=== PATIENT | female | born 2000 | race Caucasian/White ===

== ENCOUNTER 2020-02-02 17:53 | Emergency (ER) | payer OTHER ==
[2020-02-02 18:04] VITALS: BP 125/77
--- NOTE | 2020-02-02 18:10 | ED Physician Documentation ---
PD HPI LOWER EXT INJURY - Stated complaint Stated Complaint: SWOLLEN RED SPOT ON L FOOT - Chief complaint Chief Complaint: Ext Problem - History obtained from History obtained from: Patient - History of Present Illness PD HPI LOW EXT INJURY LOCATION: Other (She noticed 2 red areas on the left foot a couple of days ago, not sure what happened. She presumed spider bite. No fevers.) Review of Systems Constitutional: reports: Reviewed and negative Throat: reports: Reviewed and negative Cardiac: reports: Reviewed and negative Respiratory: reports: Reviewed and negative PD PAST MEDICAL HISTORY - Past Medical History Past Medical History: No Cardiovascular: None Respiratory: None Neuro: None Endocrine/Autoimmune: None GI: None CLINICAL REVIEWER: None : None HEENT: None Psych: None Musculoskeletal: None Derm: None - Past Surgical History Past Surgical History: No - Present Medications Home Medications: Ambulatory Orders Medication Instructions Recorded Confirmed Cephalexin [Keflex] 500 mg PO Q6H #28 capsule 02/02/20 - Allergies Allergies/Adverse Reactions: Allergies Allergy/AdvReac Type Severity Reaction Status Date / Time No Known Drug Allergies Allergy Verified 02/02/20 18:00 - Social History Does the pt smoke?: No Smoking Status: Never smoker Does the pt drink ETOH?: No Does the pt have substance abuse?: No - Immunizations Immunizations are current?: Yes - POLST Patient has POLST: No PD ED PE NORMAL - Vitals Vital signs reviewed: Yes - General General: Alert and oriented X 3, No acute distress - Extremities Extremities: Other (There is very mild redness of the dorsal right left second toe and there is more significant redness but still very small on the lateral left foot.) - Neuro Neuro: Alert and oriented X 3, Normal speech Results - Vitals Vitals: Vital Signs - 24 hr 02/02/20 18:00 Temperature 36.6 C Heart Rate 65 Respiratory 16 Rate Blood Pressure 125/77 O2 Saturation 99 Oxygen O2 Source Room air Departure - Departure Disposition: 01 Home, Self Care Clinical Impression: Cellulitis of left foot Condition: Good Record reviewed to determine appropriate education?: Yes Instructions: Cellulitis Dc Prescriptions: Cephalexin [Keflex] 500 mg PO Q6H #28 capsule Comments: Call your doctor to arrange a follow-up appointment, make the next available appointment. In the interim, return anytime if worse or if new symptoms develop.
== END 2020-02-02 18:19 | disposition home or self-care (01) ==
LOC: ED 17:53
DX: L03.116 Cellulitis of left lower limb (principal)
CPT/HCPCS: 99282; 99283

== ENCOUNTER 2020-05-26 22:58 | Emergency (ER) | payer OTHER ==
--- NOTE | 2020-05-26 23:02 | ED Physician Documentation ---
History of Present Illness - Stated complaint Stated Complaint: FEM - History obtained from History obtained from: Patient - Additonal information Additional information: Patient is a 20-year-old female who presents with pelvic pain off and on for the last 2 weeks. Also reports irregular vaginal bleeding And irregular periods. Denies any history of denies using any control. Denies any fever chills or night sweats denies any dysuria hematuria or flank pain.Reports she is otherwise healthy and up-to-date on all recommended Review of Systems Constitutional: reports: Reviewed and negative Eyes: reports: Reviewed and negative Ears: reports: Reviewed and negative Nose: reports: Reviewed and negative Throat: reports: Reviewed and negative Cardiac: reports: Reviewed and negative Respiratory: reports: Reviewed and negative GI: reports: Reviewed and negative : reports: Vaginal bleeding, Irregular menses, Other (Pelvic pain) Skin: reports: Reviewed and negative Musculoskeletal: reports: Reviewed and negative Neurologic: reports: Reviewed and negative Psychiatric: reports: Reviewed and negative Endocrine: reports: Reviewed and negative Immunocompromised: reports: Reviewed and negative PD PAST MEDICAL HISTORY - Past Medical History Cardiovascular: None Respiratory: None Neuro: None Endocrine/Autoimmune: None GI: None COUNCILPERSON: None : None HEENT: None Psych: None Musculoskeletal: None Derm: None - Past Surgical History Past Surgical History: No - Present Medications Home Medications: Ambulatory Orders Medication Instructions Recorded Confirmed Cephalexin [Keflex] 500 mg PO Q6H #28 capsule 02/02/20 Hydrocodone/Acetaminophen [[place] 1 each PO Q6HR PRN #10 tablet 05/27/20 5-325 Tablet] Ondansetron Odt [Zofran Odt] 4 mg TL Q6H PRN #10 tablet 05/27/20 - Allergies Allergies/Adverse Reactions: Allergies Allergy/AdvReac Type Severity Reaction Status Date / Time No Known Drug Allergies Allergy Verified 05/26/20 23:17 - Social History Does the pt smoke?: No Smoking Status: Never smoker Does the pt drink ETOH?: No Does the pt have substance abuse?: No - Immunizations Immunizations are current?: Yes - POLST Patient has POLST: No PD ED PE NORMAL - Vitals Vital signs reviewed: Yes - General General: Alert and oriented X 3, No acute distress - HEENT HEENT: PERRL - Neck Neck: Supple, no meningeal sign - Cardiac Cardiac: RRR, No murmur - Respiratory Respiratory: Clear bilaterally - Abdomen Abdomen: Normal bowel sounds, Soft, Non tender, Non distended, No organomegaly, Other (Negative Booker's, negative McBurney's, negative Rovsing's negative psoas) - Female Female : Pt declined - Rectal Rectal: Pt declined - Back Back: No CVA TTP, No spinal TTP - Derm Derm: Warm and dry - Extremities Extremities: No deformity - Neuro Neuro: Alert and oriented X 3 - Psych Psych: Normal mood, Normal affect Results - Vitals Vitals: Vital Signs - 24 hr 05/26/20 05/26/20 05/27/20 23:10 23:57 00:19 Temperature 37.0 C Heart Rate 73 Respiratory 17 16 16 Rate Blood Pressure 125/73 O2 Saturation 98 05/27/20 01:11 Temperature Heart Rate 79 Respiratory 15 Rate Blood Pressure 115/68 O2 Saturation 100 Oxygen O2 Source Room air - Labs Labs: Laboratory Tests 05/26/20 05/26/20 05/26/20 23:05 23:50 23:50 WBC 10.1 RBC 4.46 Hgb 13.9 Hct 41.3 MCV 92.6 MCH 31.2 H MCHC 33.7 RDW 12.6 Plt Count 274 MPV 10.6 Neut # (Auto) 7.2 H Lymph # (Auto) 2.1 [place] # (Auto) 0.7 Eos # (Auto) 0.0 Baso # (Auto) 0.1 Absolute Nucleated RBC 0.00 Nucleated RBC % 0.0 Sodium 139 Potassium 3.6 Chloride 104 Carbon Dioxide 25 Anion Gap 10.0 BUN 9 Creatinine 0.7 Estimated GFR (MDRD) 106 Glucose 90 Calcium 9.6 Total Bilirubin 0.6 AST 18 ALT 23 Alkaline Phosphatase 65 Total Protein 8.3 H Albumin 4.9 Globulin 3.4 Albumin/Globulin Ratio 1.4 Lipase 19 L Urine Color YELLOW Urine Clarity CLEAR Urine pH 7.0 Ur Specific [place] 1.015 Urine Protein NEGATIVE Urine Glucose (UA) NEGATIVE Urine Ketones NEGATIVE Urine Occult Blood NEGATIVE Urine Nitrite NEGATIVE Urine Bilirubin NEGATIVE Urine Urobilinogen 1 (NORMAL) Ur Leukocyte Esterase NEGATIVE Ur Microscopic Review NOT INDICATED Urine Culture Comments NOT INDICATED Urine HCG, Qual NEGATIVE PD MEDICAL DECISION MAKING - ED course Complexity details: reviewed results, re-evaluated patient, d/w patient ED course: 20-year-old female with pelvic pain abnormal periods and occasional vaginal bleeding. Her vitals are unremarkable as well as her lab work formal transvaginal ultrasound was normal as well. She is currently asymptomatic. Patient will be given referral to RECORDS ASSISTANT and a prescription for analgesics as needed for severe pain and nausea and she should follow-up with an RECORDS ASSISTANT or return to the emergency department with any concerns. Departure - Departure Disposition: 01 Home, Self Care Clinical Impression: Pelvic pain Condition: Stable Instructions: ED Pelvic Pain [facility] Follow-Up: Cem Mckinnon MD [Provider Admit Priv/Credential] - As Needed Prescriptions: Hydrocodone/Acetaminophen [[place] 5-325 Tablet] 1 each PO Q6HR PRN #10 tablet PRN Reason: Pain Ondansetron Odt [Zofran Odt] 4 mg TL Q6H PRN #10 tablet PRN Reason: Nausea / Vomiting Comments: Please follow up with an RECORDS ASSISTANT. Take norco as needed for severe pain. Return to the emergency department with any concerns.
[2020-05-26 23:20] LABS: BILIRUBIN,URINE NEGATIVE (NEGATIVE); GLUCOSE, URINE (UA) NEGATIVE (NEGATIVE); KETONES,URINE (UA) NEGATIVE (NEGATIVE); LEUKOCYTE ESTERASE, URINE NEGATIVE (NEGATIVE); NITRITE,URINE NEGATIVE (NEGATIVE); OCCULT BLOOD,URINE NEGATIVE (NEGATIVE); PROTEIN,URINE NEGATIVE (NEGATIVE); UROBILINOGEN,URINE 1 (NORMAL) E.U./dL (NORMAL)
[2020-05-26 23:32] LABS: CLARITY,URINE CLEAR (CLEAR); HCG UR QUAL NEGATIVE
[2020-05-26] MEDS ORDERED: KETOROLAC 30 MG/ML VIAL IVP STA (23:48)
[2020-05-26 23:59] LABS: BASOPHILS # (AUTO) 0.1 10^3/uL (0.0-0.1); BASOPHILS % (AUTO) 0.9 %; EOSINOPHILS % (AUTO) 0.3 %; HGB - HEMOGLOBIN 13.9 g/dL (12.0-16.0); LYMPHOCYTES # (AUTO) 2.1 10^3/uL (1.5-3.5); LYMPHOCYTES % (AUTO) 20.6 %; MEAN CORPUSCULAR HEMOGLOBIN 31.2 pg (27.0-31.0); MEAN CORPUSCULAR HGB CONC 33.7 g/dL (32.0-36.0); MEAN CORPUSCULAR VOLUME 92.6 fL (81.0-99.0); MEAN PLATELET VOLUME 10.6 fL (7.9-10.8); MONOCYTES # (AUTO) 0.7 10^3/uL (0.0-1.0); MONOCYTES % (AUTO) 7.2 %; NEUTROPHILS # (AUTO) 7.2 10^3/uL (1.5-6.6); NEUTROPHILS % (AUTO) 70.5 %; PLT - PLATELET COUNT 274 10^3/uL (130-450); RED BLOOD COUNT 4.46 10^6/uL (4.20-5.40); RED CELL DISTRIBUTION WIDTH 12.6 % (12.0-15.0); WHITE BLOOD COUNT 10.1 x10^3/uL (4.8-10.8)
[2020-05-27 00:12] LABS: ALBUMIN 4.9 g/dL (3.2-5.5); ALBUMIN/GLOBULIN RATIO 1.4 (1.0-2.2); BILIRUBIN,TOTAL 0.6 mg/dL (0.2-1.0); CALCIUM 9.6 mg/dL (8.5-10.3); CREATININE 0.7 mg/dL (0.4-1.0); TOTAL PROTEIN 8.3 g/dL (6.7-8.2)
[2020-05-27 01:12] VITALS: BP 115/68
--- NOTE | 2020-05-27 08:14 | Ultrasound Report ---
PROCEDURE: Pelvic w/Transvag+Doppler Comp INDICATIONS: pelvic pain, R TECHNIQUE: Real-time scanning was performed of the pelvic organs, with image documentation. Additional endovagi nal scanning was necessary due to incomplete visualization of the adnexal and endometrial structures by transabdominal scanning. COMPARISON: None. FINDINGS: Transabdominal scanning: Limited scanning through the kidneys shows no hydronephrosis. No pathologi c free abdominal or pelvic fluid. Endovaginal scanning: Uterus: Uterus is normal in size at 0.0 x 5.3 x 7.7 cm. The endometrium measures 11 mm in combined thickness. Prominent periuterine vasculature noted. Ovaries: Both ovaries are normal in size and appearance with normal color flow and Doppler arterial/ venous spectral tracing. Bilateral ovarian cysts are present, largest on the right measuring 2.1 cm. IMPRESSION: No findings of ovarian torsion or other acute abnormality. Prominent periuterine vasculature may reflect pelvic congestion syndrome in the appropriate clinical setting. Reviewed by: Andrea Zee MD on 05/27/2020 8:13 AM PDT Approved by: Andrea Zee MD on 05/27/2020 8:13 AM PDT Station ID: [id number]
== END 2020-05-27 02:11 | disposition home or self-care (01) ==
LOC: ED 22:58
DX: R10.2 Pelvic and perineal pain (principal)
CPT/HCPCS: 36415; 76830; 76856; 80053; 81001; 81003; 81025; 83690; 85025; 87086; 93975; 96374; 99284

== ENCOUNTER 2021-02-08 16:20 | Emergency (ER) | payer OTHER ==
[2021-02-08 16:35] VITALS: BP 121/71
[2021-02-08] MEDS ORDERED: ACETAMINOPHEN 325 MG TABLET PO STA (17:40)
[2021-02-08] MEDS ORDERED: IBUPROFEN 600 MG TABLET PO STA (17:40)
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
--- NOTE | 2021-02-08 18:28 | CT Report ---
PROCEDURE: CHEST WO INDICATIONS: sternal area injury and pain/tender TECHNIQUE: Noncontrast 5 mm thick sections acquired from the pulmonary apices to the posterior costophrenic angl es. 7 mm thick coronal and sagittal MIP reformats were then acquired. For radiation dose reduction, the following was used: automated exposure control, adjustment of mA and/or kV according to patient size. COMPARISON: None FINDINGS: Image quality: Excellent. Lungs and pleura: No acute air space opacities. No pleural effusions or pneumothorax. Central and peripheral airways are patent and normal in caliber. Mediastinum: Heart size is normal. No pericardial effusion. No mediastinal adenopathy by size crit eria. Thoracic aorta and central pulmonary arteries are normal in size. Esophagus is normal in tien darling. No hiatal hernia. Bones and chest wall: No suspicious bony lesions. No vertebral body compression fractures. No axil bill or supraclavicular adenopathy by size criteria. The thyroid is normal in size and there are no incidental findings. Abdomen: Visualized upper abdominal solid organs and bowel loops appear normal in the absence of con trast. IMPRESSION: 1. No visualized sternal soft tissue prominence or osseous fracture. CLINICAL RECOMMENDATION STATEMENTS: In patients <35 years with an ITN detected on CT, MRI, or extrathyroidal ultrasound, the Committee re commends further evaluation with dedicated thyroid ultrasound if the nodule is ?1 cm and has no suspi cious imaging features, and if the patient has normal life expectancy. In patients ?35 years with an ITN detected on CT, MRI, or extrathyroidal ultrasound, the Committee re commends further evaluation with dedicated thyroid ultrasound if the nodule is ?1.5 cm and has no frank picious imaging features, and if the patient has normal life expectancy. (ACR, 2014) Reviewed by: Carline Chery MD on 02/08/2021 6:27 PM PDT Approved by: Carline Chery MD on 02/08/2021 6:27 PM PDT Station ID: [id number]
== END 2021-02-08 19:28 | disposition home or self-care (01) ==
LOC: ED 16:20
DX: S20.219A Contusion of unspecified front wall of thorax, initial encounter (principal); W22.8XXA Striking against or struck by other objects, initial encounter
CPT/HCPCS: 71250; 99283; 99284; A9270

== ENCOUNTER 2021-05-29 21:24 | Outpatient (CLI) | payer OTHER | END 2021-05-29 21:25 | disposition EMS.NT | LOC: EMS 21:24 | DX: F41.0 Panic disorder [episodic paroxysmal anxiety] (principal) ==

== ENCOUNTER 2022-09-20 20:30 | Emergency (ER) | payer OTHER ==
[2022-09-20 20:43] VITALS: BP 117/72
--- NOTE | 2022-09-20 20:54 | ED Physician Documentation ---
PD HPI FEMALE - Stated complaint Stated Complaint: FEMALE - Chief complaint Chief Complaint: Abd Pain - History obtained from History obtained from: Patient - Additional information Additional information: 22-year-old woman not on hormonal control. Last sexual activity was about a month and a half ago. Last normal menses August 07. Started bleeding 17 days ago, tapered off after a few days but now has been constant with brighter blood than usual menses and some left pelvic stabbing pain. Took a test at home which was negative. PD PAST MEDICAL HISTORY - Past Medical History Cardiovascular: None Respiratory: None Neuro: None Endocrine/Autoimmune: None GI: None CHILD DAY C[facility] C[facility] WORKER: None : None HEENT: None Psych: None Musculoskeletal: None Derm: None - Past Surgical History Past Surgical History: Yes - Present Medications Home Medications: Ambulatory Orders Medication Instructions Recorded Confirmed Norgestimate-Ethinyl Estradiol 1 each PO TID #1 ea 09/20/22 [Ortho Tri-Cyclen 28 Tablet] - Allergies Allergies/Adverse Reactions: Allergies Allergy/AdvReac Type Severity Reaction Status Date / Time No Known Drug Allergies Allergy Verified 02/08/21 16:35 - Social History Does the pt smoke?: No Smoking Status: Never smoker Does the pt drink ETOH?: Yes Does the pt have substance abuse?: No - Immunizations Immunizations are current?: Yes - POLST Patient has POLST: No PD ED PE NORMAL - Vitals Vital signs reviewed: Yes - General General: Alert and oriented X 3, No acute distress - Abdomen Abdomen: Soft, Non tender - Neuro Neuro: Alert and oriented X 3, Normal speech - Psych Psych: Normal mood, Normal affect Results - Vitals Vitals: Vital Signs - 24 hr 09/20/22 20:38 Temperature 37.1 C Heart Rate 78 Respiratory 17 Rate Blood Pressure 117/72 O2 Saturation 99 Oxygen O2 Source Room air - Labs Labs: Laboratory Tests 09/20/22 09/20/22 21:05 21:05 Hgb 13.9 Hct 42.1 HCG, Quant < 0.60 - Rads (name of study) Pelvic sono Radiology: Final report received, EMP read indepedently PD Medical Decision Making - ED course ED course: 22 yo with abn VB, and L pelvic pain. H/H nl, Bhcg neg/nl. Sono with B ov cysts. F/U sono recommended and d/w pt. Will start high dose OCP to stop bleeding. Departure - Departure Disposition: 01 Home, Self Care Clinical Impression: Pelvic pain, Dysfunctional uterine bleeding Record reviewed to determine appropriate education?: Yes Instructions: ED Bleed Irregular Vaginal Prescriptions: Norgestimate-Ethinyl Estradiol [Ortho Tri-Cyclen 28 Tablet] 1 each PO TID #1 ea Comments: As discussed, your blood work is normal with normal blood counts and negative test. Ultrasound showing bilateral ovarian cysts. We are starting you on high-dose control. Take it 3 times a day for the first few days, then once the bleeding has stopped, twice a day for 2 to 3 days, and then once a day to finish out the pack. Follow-up with your flight surgeon. You will need a repeat ultrasound in 6 to 8 weeks to confirm resolution. Return for new or worsening symptoms. Discharge Date/Time: 09/20/22 22:13
[2022-09-20 21:10] LABS: HCT - HEMATOCRIT 42.1 % (37.0-47.0); HGB - HEMOGLOBIN 13.9 g/dL (12.0-16.0)
--- NOTE | 2022-09-20 23:10 | Ultrasound Report ---
PROCEDURE: Pelvic w/Transvag+Doppler Comp INDICATIONS: Left pelvic pain with menorrhagia TECHNIQUE: Real-time scanning was performed of the pelvic organs, with image documentation. Additional endovagi nal scanning was necessary due to incomplete visualization of the adnexal and endometrial structures by transabdominal scanning. Doppler interrogation was performed of the ovaries bilaterally. COMPARISON: Pelvic ultrasound 05/27/2020. FINDINGS: No pathologic free abdominal or pelvic fluid. Uterus: Uterus is anteverted and measures 7.6 x 2.7 x 5.0 cm. Image 2 measures up to 0.5 cm in thick ness. There are prominent uterine vessels redemonstrated. Ovaries: The right ovary measures 5.1 x 4.4 x 4 cm with a volume of 46.7 mL. The left ovary measures 3.3 x 2.5 x 2.7 cm with a volume of 11.7 mL. There is a cyst which is likely anechoic in the right o vary measuring up to 4.3 x 1.8 x 4.3 cm. Within the left ovary, there is a thick-walled cyst measurin g up to 2.1 x 2.1 x 1.9 cm. Patent arterial and venous flow demonstrated within the ovaries. No adnex al masses. Other: No free pelvic fluid. IMPRESSION: 1. No definite evidence of ovarian torsion. 2. Enlargement of the right ovary with a simple appearing cyst measuring up to 4.3 cm. 3. Thick walled left ovarian cyst is nonspecific but likely represents a physiologic cyst. Consider f ollow-up ultrasound in 6 weeks demonstrate resolution. Reviewed by: Cameron Cassidy MD on 09/20/2022 11:08 PM [facility] Approved by: Cameron Cassidy MD on 09/20/2022 11:08 PM PST Station ID: [id number]
== END 2022-09-20 22:13 | disposition home or self-care (01) ==
LOC: ED 20:30
DX: N93.8 Other specified abnormal uterine and vaginal bleeding (principal); R10.2 Pelvic and perineal pain
CPT/HCPCS: 36415; 84702; 85014; 85018; 93975; 99283; 99284

== ENCOUNTER 2022-11-29 00:05 | Emergency (ER) | payer OTHER ==
[2022-11-29] MEDS ORDERED: KETOROLAC 30 MG/ML VIAL IM STA (02:34)
--- NOTE | 2022-11-29 02:36 | ED Physician Documentation ---
History of Present Illness - Stated complaint Stated Complaint: RT HAND PX - Chief complaint Chief Complaint: Trauma Ext - History obtained from History obtained from: Patient - Additonal information Additional information: 22-year-old woman, previously healthy, presents with right hand pain for the past 2 weeks, "throbbing, constant, moderate severity, worsening tonight. Patient states that she does repetitive heavy lifting at work and is right-hand dominant. Denies numbness or weakness. PD PAST MEDICAL HISTORY - Past Medical History Cardiovascular: None Respiratory: None Neuro: None Endocrine/Autoimmune: None GI: None SPORTS WRITER: None : None HEENT: None Psych: None Musculoskeletal: None Derm: None - Past Surgical History Past Surgical History: Yes - Present Medications Home Medications: Ambulatory Orders Medication Instructions Recorded Confirmed Norgestimate-Ethinyl Estradiol 1 each PO TID #1 ea 09/20/22 [Ortho Tri-Cyclen 28 Tablet] - Allergies Allergies/Adverse Reactions: Allergies Allergy/AdvReac Type Severity Reaction Status Date / Time No Known Drug Allergies Allergy Verified 11/29/22 00:24 - Social History Does the pt smoke?: No Smoking Status: Never smoker Does the pt drink ETOH?: Yes Does the pt have substance abuse?: No - Immunizations Immunizations are current?: Yes - POLST Patient has POLST: No PD ED PE NORMAL - Vitals Vital signs reviewed: Yes - General General: Alert and oriented X 3, No acute distress, Well developed/nourished - HEENT HEENT: Atraumatic, PERRL, EOMI - Derm Derm: Normal color, Warm and dry - Extremities Extremities: No deformity, No tenderness to palpate, Normal ROM s pain, Other (Right wrist discomfort with Flexion and extension.Normal range of motion. 2+ radial pulse. Normal sensation and movement to fingers.) Results - Vitals Vitals: Vital Signs - 24 hr 11/29/22 00:19 Temperature 37.1 C Heart Rate 47 L Respiratory 19 Rate Blood Pressure 125/77 O2 Saturation 99 Oxygen O2 Source Room air PD Medical Decision Making - ED course ED course: 22-year-old woman presents with repetitive use injury, likely wrist pain versus tendinopathy. Wrist splint applied. Advised symptomatic care. Work note provided. Return precautions given she will follow-up with [employer] [facility]. Departure - Departure Disposition: 01 Home, Self Care Clinical Impression: Injury caused by lifting with repetitive movement, Tendinopathy Condition: Stable Instructions: ED Sprain Hand Comments: You were seen in the emergency department for evaluation of right hand pain. Please wear your brace as needed and follow-up with [facility]. Return to the emergency department for new or worsening symptoms or other concerns. Take ibuprofen 600 mg every 6 hours as needed for pain. Forms: Activity restrictions
[2022-11-29 02:54] VITALS: BP 127/76
== END 2022-11-29 02:55 | disposition home or self-care (01) ==
LOC: ED 00:05
DX: M67.843 Other specified disorders of tendon, right hand (principal); X50.3XXA Overexertion from repetitive movements, initial encounter; Y99.0 Civilian activity done for income or pay
CPT/HCPCS: 96372; 99283

== ENCOUNTER 2023-02-16 20:02 | Emergency (ER) | payer OTHER ==
[2023-02-16 20:07] VITALS: BP 128/85
--- NOTE | 2023-02-16 20:21 | ED Physician Documentation ---
History of Present Illness - Stated complaint Stated Complaint: FEMALE - Chief complaint Chief Complaint: General - Additonal information Additional information: 22-year-old female here requesting STI testing and possible treatment. She r eports that her primary partner has been having penile discharge and reportedly had sex outside the relationship with somebody who has tested positive for chlamydia. The patient denies pelvic pain vaginal discharge and she has no personal history of STI. Review of Systems Constitutional: reports: Reviewed and negative GI: reports: Reviewed and negative : reports: Reviewed and negative PD PAST MEDICAL HISTORY - Past Medical History Cardiovascular: None Respiratory: None Neuro: None Endocrine/Autoimmune: None GI: None ROAD MACHINE OPERATOR: None : None HEENT: None Psych: None Musculoskeletal: None Derm: None - Past Surgical History Past Surgical History: Yes - Present Medications Home Medications: Ambulatory Orders Medication Instructions Recorded Confirmed Norgestimate-Ethinyl Estradiol 1 each PO TID #1 ea 09/20/22 [Ortho Tri-Cyclen 28 Tablet] Doxycycline Hyclate 100 mg PO BID #14 cap 02/16/23 - Allergies Allergies/Adverse Reactions: Allergies Allergy/AdvReac Type Severity Reaction Status Date / Time No Known Drug Allergies Allergy Verified 02/16/23 20:04 - Social History Does the pt smoke?: No Smoking Status: Never smoker Does the pt drink ETOH?: Yes Does the pt have substance abuse?: No - Immunizations Immunizations are current?: Yes - POLST Patient has POLST: No PD ED PE NORMAL - General General: Alert and oriented X 3, No acute distress - Cardiac Cardiac: RRR, No murmur - Respiratory Respiratory: Clear bilaterally - Abdomen Abdomen: Normal bowel sounds, Soft, Non tender, Non distended - Female Female : Deferred - Derm Derm: Normal color, Warm and dry, No rash Results - Vitals Vitals: Vital Signs - 24 hr 02/16/23 20:04 Temperature 36.5 C Heart Rate 88 Respiratory 16 Rate Blood Pressure 128/85 H O2 Saturation 98 Oxygen O2 Source Room air - Labs Labs: Laboratory Tests 02/16/23 20:24 Urine HCG, Qual NEGATIVE Departure - Departure Disposition: 01 Home, Self Care Clinical Impression: Screening for STD (sexually transmitted disease) Condition: Stable Record reviewed to determine appropriate education?: Yes Prescriptions: Doxycycline Hyclate 100 mg PO BID #14 cap Comments: As discussed at the bedside your testing today is negative. We are treating you empirically for suspicion of STD. You received 500 mg of ceftriaxone here in the emergency department which would treat gonorrhea and I am sending you with a prescription for doxycycline to the [facility] in [place]. This would treat chlamydia. Take this twice daily for the next week. Return to the ER if your symptoms worsen
[2023-02-16] MEDS ORDERED: DOXYCYCLINE 100 MG TABLET PO STA (20:30)
[2023-02-16] MEDS ORDERED: cefTRIAXone 500 MG VIAL IM STA (20:30)
[2023-02-16] MEDS ORDERED: LIDOCAINE 1% 2 ML VIAL MC ONE (20:30)
[2023-02-16 20:32] LABS: HCG UR QUAL NEGATIVE
[2023-02-16 23:08] LABS: NEISSERIA GONORRHOEAE DNA NEGATIVE (NEGATIVE); TRICHOMONAS VAGINALIS DNA NEGATIVE (NEGATIVE)
[2023-02-16 23:31] LABS: CHLAMYDIA TRACHOMATIS DNA POSITIVE (NEGATIVE)
== END 2023-02-16 20:53 | disposition home or self-care (01) ==
LOC: ED 20:02
DX: Z11.3 Encounter for screening for infections with a predominantly sexual mode of transmission (principal)
CPT/HCPCS: 81025; 87491; 87591; 87661; 96372; 99283; A9270